=== PATIENT | male | born 1935 | race Hispanic/Latino ===

== ENCOUNTER 2023-12-27 12:39 | Inpatient (IN) | payer MEDICARE ==
[2023-12-27] VITALS (8 sets, daily range): BP systolic 107–155; BP diastolic 72–86; PULSE 61–89; RESP 13–20; TEMP 97.5–98.8; O2SAT 95–100
[~2023-12-27] VITALS: Ht 165.1 cm; Wt 55.4 kg
[2023-12-27] MEDS: ACETAMINOPHEN 1000 MG/100 ML IV STA (12:53)
[2023-12-27] MEDS: SODIUM CHLORIDE 0.9% 1000ML 1,000 ML IV SCH (12:53)
[2023-12-27 13:14] LABS: BASOPHILS % 0.3 % (0.0-1.0); HEMATOCRIT 38.8 % (38.2-49.6); HEMOGLOBIN 12.4 g/dL (14.0-18.0); LYMPHOCYTES # (AUTO) 0.5 (1.0-3.2); LYMPHOCYTES % 8.3 % (18.0-39.1); MEAN CORPUSCULAR HEMOGLOBIN 32.3 pg (28-32); MONOCYTES # (AUTO) 0.5 (0.2-0.8); MONOCYTES % 8.2 % (4.4-11.3); NEUTROPHILS # (AUTO) 5.1 (2.1-6.9); NEUTROPHILS % 82.9 % (38.7-80.0); PLATELET COUNT 200 x10e3/uL (140-360); RED BLOOD COUNT 3.84 x10e6/uL (4.3-5.7); RED CELL DISTRIBUTION WIDTH 12.8 % (11.7-14.4); WHITE BLOOD COUNT 6.11 x10e3/uL (4.8-10.8)
[2023-12-27 13:37] LABS: CLARITY,URINE CLOUDY (CLEAR); COLOR,URINE YELLOW (YELLOW); GLUCOSE, URINE NEGATIVE (NEGATIVE); KETONES,URINE TRACE (NEGATIVE); LEUKOCYTE ESTERASE ,URINE NEGATIVE (NEGATIVE); NITRITE,URINE NEGATIVE (NEGATIVE); PH,URINE 6 (5 - 7); PROTEIN,URINE DIPSTICK 1+ (NEGATIVE)
[2023-12-27 13:38] LABS: BILIRUBIN,URINE SMALL (NEGATIVE)
[2023-12-27] MEDS: KETOROLAC TROMETHAMINE 30 MG/ML VIAL IV ONE (13:40)
[2023-12-27 13:41] LABS: INFLUENZAE A&B ANTIGEN (RAPID) NEGATIVE (NEGATIVE); RESPIRATORY SYNC. VIRUS NEGATIVE (NEGATIVE)
[2023-12-27 13:45] LABS: ALBUMIN 2.8 g/dL (3.5-5.0); ALBUMIN/GLOBULIN RATIO 0.7 (0.8-2.0); ANION GAP 16.2 mmol/L (8-16); BILIRUBIN,TOTAL 1.4 mg/dL (0.2-1.2); CREATININE, SERUM 2.56 mg/dL (0.72-1.25); TOTAL PROTEIN 6.6 g/dL (6.5-8.1)
[2023-12-27 13:50] LABS: BACTERIA,URINE FEW /HPF; EPITHELIAL CELLS,URINE FEW /LPF; RBC,URINE 0-5 /HPF (0-5); WBC,URINE (MAN) 0-5 /HPF (0-5)
[2023-12-27 13:53] LABS: POTASSIUM 3.2 mmol/L (3.5-5.1)
[2023-12-27 13:58] LABS: CALCIUM 13.3 mg/dL (8.4-10.2)
[2023-12-27] MEDS: LACTATED RINGER'S 1,000 ML INJ ONE (15:22)
[2023-12-28] VITALS (9 sets, daily range): BP systolic 116–146; BP diastolic 71–98; PULSE 55–65; RESP 16–20; TEMP 97.4–98.9; O2SAT 94–100
[2023-12-28 05:48] LABS: BASOPHILS % 0.2 % (0.0-1.0); EOSINOPHILS % 0.9 % (0.0-6.0); HEMATOCRIT 34.1 % (38.2-49.6); HEMOGLOBIN 10.7 g/dL (14.0-18.0); LYMPHOCYTES # (AUTO) 0.8 (1.0-3.2); LYMPHOCYTES % 16.5 % (18.0-39.1); MEAN CORPUSCULAR HEMOGLOBIN 32.3 pg (28-32); MEAN CORPUSCULAR HGB CONC 31.4 g/dL (31-35); MONOCYTES # (AUTO) 0.3 (0.2-0.8); NEUTROPHILS # (AUTO) 3.4 (2.1-6.9); NEUTROPHILS % 74.7 % (38.7-80.0); PLATELET COUNT 150 x10e3/uL (140-360); RED BLOOD COUNT 3.31 x10e6/uL (4.3-5.7); WHITE BLOOD COUNT 4.55 x10e3/uL (4.8-10.8)
[2023-12-28 06:12] LABS: ANION GAP 11.9 mmol/L (8-16); CALCIUM 11.9 mg/dL (8.4-10.2); CREATININE, SERUM 2.22 mg/dL (0.72-1.25)
[2023-12-28 06:15] LABS: POTASSIUM 2.9 mmol/L (3.5-5.1)
[2023-12-28] MEDS: POTASSIUM CHLORIDE 40 MEQ in DEXTROSE 5% 1,000 ML IV SCH (07:05)
[2023-12-28] MEDS ORDERED: ONDANSETRON HCL INJ 2MG/ML 2ML 2 MG/ML VIAL IV PRN (10:45)
[2023-12-28] MEDS ORDERED: FUROSEMIDE20 MG PO (11:20)
[2023-12-28] MEDS ORDERED: MEMANTINE HCL10 MG PO (11:20)
[2023-12-28] MEDS ORDERED: QUETIAPINE FUMA25 MG PO (11:20)
[2023-12-28] MEDS ORDERED: LOSARTAN POTAS100 MG PO (11:20)
[2023-12-28] MEDS: ENOXAPARIN 30 MG/0.3 ML SYR SC SCH (17:14)
[2023-12-29] VITALS (7 sets, daily range): BP systolic 86–173; BP diastolic 57–100; PULSE 59–75; RESP 16–19; TEMP 97.2–98.6; O2SAT 98–100
[2023-12-29 05:53] LABS: BASOPHILS % 0.3 % (0.0-1.0); EOSINOPHILS # (AUTO) 0.1 (0.0-0.4); EOSINOPHILS % 3.3 % (0.0-6.0); HEMATOCRIT 36.4 % (38.2-49.6); HEMOGLOBIN 11.2 g/dL (14.0-18.0); LYMPHOCYTES # (AUTO) 0.9 (1.0-3.2); MEAN CORPUSCULAR HEMOGLOBIN 32.5 pg (28-32); MEAN CORPUSCULAR HGB CONC 30.8 g/dL (31-35); MEAN CORPUSCULAR VOLUME 105.5 fL (81-99); MONOCYTES # (AUTO) 0.3 (0.2-0.8); NEUTROPHILS # (AUTO) 2.7 (2.1-6.9); NEUTROPHILS % 67.1 % (38.7-80.0); PLATELET COUNT 147 x10e3/uL (140-360); RED BLOOD COUNT 3.45 x10e6/uL (4.3-5.7); RED CELL DISTRIBUTION WIDTH 12.7 % (11.7-14.4)
[2023-12-29 06:01] LABS: ANION GAP 11.2 mmol/L (8-16); CALCIUM 11.5 mg/dL (8.4-10.2); CREATININE, SERUM 1.82 mg/dL (0.72-1.25)
[2023-12-29 06:03] LABS: POTASSIUM 3.2 mmol/L (3.5-5.1)
[2023-12-30] VITALS (7 sets, daily range): BP systolic 129–187; BP diastolic 71–109; PULSE 65–80; RESP 16–19; TEMP 97.2–98.3; O2SAT 92–100
[2023-12-30] MEDS: AMLODIPINE BESYLATE 10 MG TAB PO SCH (08:41)
[2023-12-30] MEDS: MEGESTROL ACETATE 40 MG TAB PO SCH (10:40)
[2023-12-30] MEDS ORDERED: ONDANSETRON HCL 4 MG ORAL DISINTEGRATING TAB PO PRN (11:00)
[2023-12-30] MEDS: MIRTAZAPINE 15 MG TAB PO SCH (21:15)
[2023-12-31] VITALS (7 sets, daily range): BP systolic 104–198; BP diastolic 58–92; PULSE 67–98; RESP 17–21; TEMP 96.3–98.9; O2SAT 97–100
[2023-12-31 05:53] LABS: ANION GAP 9.6 mmol/L (8-16); CALCIUM 10.9 mg/dL (8.4-10.2); CREATININE, SERUM 1.26 mg/dL (0.72-1.25); POTASSIUM 3.6 mmol/L (3.5-5.1)
[2023-12-31] MEDS: MIRTAZAPINE 15 MG TAB PO SCH (20:31)
[2024-01-01] VITALS (7 sets, daily range): BP systolic 105–149; BP diastolic 64–93; PULSE 54–84; RESP 16–18; TEMP 97.5–99.2; O2SAT 93–100
[2024-01-01 06:01] LABS: CALCIUM 11.6 mg/dL (8.4-10.2); CREATININE, SERUM 1.31 mg/dL (0.72-1.25)
[2024-01-01] MEDS: ACETAMINOPHEN 325 MG TAB PO PRN (14:40)
[2024-01-02] VITALS (7 sets, daily range): BP systolic 133–158; BP diastolic 71–85; PULSE 61–79; RESP 16–18; TEMP 98.3–99.1; O2SAT 94–97
[2024-01-02] MEDS: SODIUM CHLORIDE 0.45% 1,000 ML IV SCH (08:30)
[2024-01-02] MEDS ORDERED: PIPERACILLIN/TAZOBACTAM 3.375 GM VIAL ONE (08:40)
[2024-01-02] MEDS: SODIUM BICARBONATE 8.4% SYRING 50 ML ONE (14:28)
[2024-01-02] MEDS: SODIUM BICARBONATE 8.4% VIAL 50 ML in SODIUM CHLORIDE 0.45% 1,000 ML IV SCH (15:00)
[2024-01-03] VITALS (8 sets, daily range): BP systolic 144–189; BP diastolic 84–96; PULSE 68–91; RESP 17–20; TEMP 97.3–98.4; O2SAT 94–100
[2024-01-03] MEDS ORDERED: SODIUM CHLORIDE 0.45% 1,000 ML ONE (03:10)
[2024-01-03 06:25] LABS: CALCIUM 12.4 mg/dL (8.4-10.2); CREATININE, SERUM 1.36 mg/dL (0.72-1.25)
[2024-01-03] MEDS: DEXTROSE 5%/0.45% SOD CHL 1,000 ML IV SCH (12:41)
[2024-01-03] MEDS: CHOLECALCIFEROL 1,000 UNIT TAB PO SCH (12:41)
[2024-01-04] VITALS: PULSE 91; RESP 18; TEMP 97.2; O2SAT 100
[2024-01-04 04:00] VITALS: BP 138/91; PULSE 81; RESP 21; TEMP 97.2
[2024-01-04 06:27] LABS: ANION GAP 9.3 mmol/L (8-16); CALCIUM 11.6 mg/dL (8.4-10.2); CREATININE, SERUM 1.03 mg/dL (0.72-1.25)
[2024-01-04 06:34] LABS: POTASSIUM 3.3 mmol/L (3.5-5.1)
[2024-01-04 08:00] VITALS: BP 138/91; PULSE 81; RESP 21; TEMP 97.2; O2SAT 100
[2024-01-04 08:09] VITALS: BP 163/81; PULSE 80; RESP 19; TEMP 97.9; O2SAT 98
[2024-01-04 10:15] LABS: CALCIUM 11.2 mg/dL (8.6-10.2)
[2024-01-04 12:18] VITALS: BP 151/87; PULSE 72; RESP 18; TEMP 97.4; O2SAT 98
== END 2024-01-04 16:14 | disposition hospice, home (50) | DRG 177 ==
LOC: ER 12:56 → ERHOLD 15:01 → MED/SURG2 18:18
PROVIDERS: ADMIT Internal Medicine; ATTEND Internal Medicine
DX: J69.0 Pneumonitis due to inhalation of food and vomit (principal); E43 Unspecified severe protein-calorie malnutrition; N17.9 Acute kidney failure, unspecified; R64 Cachexia; E87.0 Hyperosmolality and hypernatremia; E86.0 Dehydration; R62.7 Adult failure to thrive; G30.1 Alzheimer's disease with late onset; F02.C0 Dementia in other diseases classified elsewhere, severe, without behavioral disturbance, psychotic disturbance, mood disturbance, and anxiety; Z51.5 Encounter for palliative care; Z68.20 Body mass index [BMI] 20.0-20.9, adult; E87.5 Hyperkalemia; Z11.52 Encounter for screening for COVID-19
CPT/HCPCS: 36415; 51700; 71045; 71250; 74230; 80048; 80053; 81001; 83605; 83970; 85025; 87040; 87086; 87400; 87420; 93005; 94799; 99252; 99285; J1650; J1885; J2543; J3480; J7030; J7070; U0002